=== PATIENT | female | born 1940 | race African-American/Black ===

== ENCOUNTER 2018-01-27 13:21 | Day surgery (SDC) | payer MEDICARE, OTHER ==
[~2018-01-27 13:21] MED LIST: 1-ME1LIQ PO; ACET325S8 PR; ANTI12.5 PO; ASPI81TA82 PO; BISA5TAB PO; CYCL5TAB PO; DAPT500P IV; DOCU1CAP39 PO; HYZA100T6 PO; MILK2400 PO; NAPR-576 PO; NEUR100C PO; NITR.4 SL; NITR0.4S SL; OMEP20TA PO; RANI1TAB7; ROLLMIS2; TRIBTAB3 PO; ULTR50TA PO; VITA5000 PO; [UNRECOGNIZED DRUG - CODE] IM
[2018-01-27 14:01] VITALS: BP 189/91; PULSE 78; RESP 20; TEMP 97.6; O2SAT 98
[2018-01-27] MEDS ORDERED: CARB1DRO (14:10)
[2018-01-27] MEDS ORDERED: AMLO5TAB2 PO (14:10)
[2018-01-27] MEDS ORDERED: FLUT55AE INH (14:10)
[2018-01-27] MEDS ORDERED: ASPI81CH6 CHEW (14:10)
[2018-01-27] MEDS ORDERED: [UNRECOGNIZED DRUG - CODE] (14:10)
[2018-01-27] MEDS ORDERED: TRAM50TA PO (14:10)
[2018-01-27] MEDS ORDERED: NIFE30TA61 PO (14:10)
[2018-01-27] MEDS ORDERED: LOSA100T PO (14:10)
[2018-01-27] MEDS ORDERED: NITR1POW (14:10)
[2018-01-27] MEDS ORDERED: PROT40TA PO (14:10)
[2018-01-27] MEDS ORDERED: GABA600T PO (14:10)
[2018-01-27] MEDS ORDERED: TEARSOL10 (14:10)
[2018-01-27] MEDS ORDERED: FURO40TA PO (14:10)
[2018-01-27] MEDS ORDERED: MILKSUS PO ×2 (14:10)
[2018-01-27] MEDS ORDERED: RA BTAB (14:10)
--- NOTE | 2018-01-27 18:10 | PD.RAD ---
Post Procedure Progress Note Procedure Date: Jan 27, 2018 Supervising Radiologist: Willy Burr Anesthesia: Local Plan of Activity Patient to Unit: [facility] Patient Condition: Good Additional Comments: PICC line in good position and ready for use See PACS Report for procedural detail/treatment Willy Burr MD Jan 27, 2018 18:10
[2018-01-27] MEDS ORDERED: SODIUM CHLORIDE 0.9% FLUSH 10 ML FLUSH IVF PRN ×2 (18:15)
[2018-01-28] MEDS ORDERED: SODIUM CHLORIDE 0.9% FLUSH 10 ML FLUSH IVF SCH (09:00)
--- NOTE | 2018-01-28 10:25 | RADRPT ---
EXAM DATE/TIME: 01/27/2018 18:16 [place] COMPARISON: No previous studies available for comparison. INDICATIONS : Patient in need of peripherally inserted central catheter placement for medicatio administration. MEDICAL HISTORY : HTN CAD Kidney stones Liver laceration SURGICAL HISTORY : Cholecystectomy Hysterectomy ENCOUNTER: Initial ACUITY: 1 day PAIN SCORE: 0/10 LOCATION: N/A FLUORO TIME: 1.23 minutes IMAGE SERIES: 1 ACCESS: Right basilic vein DEVICE(S): 1.) 4 Danish 45 cm Xcela Power PICC PROCEDURE : 1. Ultrasound guidance for venous catheterization. 2. Fluoroscopic guidance. 3. Ultrasound & fluoroscopic guided central venous Power PICC line placement. The risks, benefits and alternatives to the procedure were explained and verbal and written consent w as obtained. The site was prepped in sterile fashion. Full sterile technique was used, including ca p, mask, sterile gloves and gown and a large sterile sheet. Hand hygiene and 2% chlorhexidine prep w as utilized per protocol for cutaneous antisepsis with appropriate dry time for site. Sterile gel a nd sterile probe cover were utilized for ultrasound guidance. The skin and subcutaneous tissues wer e infiltrated with local anesthetic solution. Under direct ultrasound guidance, a suitable vein was accessed and a measuring guidewire was introduc ed and positioned in the central venous system. The ultrasound images depicting access guidance were saved and stored to PACS for permanent record. A Power Injectable PICC line was cut to prescribed length and introduced, positioned with tip at the cavoatrial junction level. The line was flushed and secured per protocol. CONCLUSION: 1. Uncomplicated central venous Power PICC line placement. 2. The PICC line can be used immediately. Willy Burr MD on January 28, 2018 at 10:22 Board Certified Radiologist. This report was verified electronically.
== END 2018-01-27 18:30 | disposition home or self-care (01) ==
LOC: HROP 13:21 → HRIP 13:24 → HROP 18:30
PROVIDERS: ATTEND Physician Assistant
DX: I87.9 Disorder of vein, unspecified (principal); I10 Essential (primary) hypertension; I25.10 Atherosclerotic heart disease of native coronary artery without angina pectoris; Z87.442 Personal history of urinary calculi
CPT/HCPCS: 36569; 76937; 77001; C1751; J1642